=== PATIENT | male | born 1970 | race Caucasian/White ===

== ENCOUNTER 2020-01-04 06:27 | Day surgery (SDC) | payer MEDICARE, SELFPAY ==
[2020-01-04 06:17] VITALS: BMI 29.7
[2020-01-04 06:45] VITALS: BP 155/85; PULSE 70; RESP 18; TEMP 36.8; O2SAT 97
--- NOTE | 2020-01-04 06:52 | ANES.PREANE2 ---
Pre-Anesthetic Assessment Pre-Anesthetic Assessment: Height/Weight: Height 1.85 m Weight 102.058 kg Temp Pulse Resp BP Pulse Ox 98.3 F 70 18 155/85 97 01/04/20 06:45 01/04/20 06:45 01/04/20 06:45 01/04/20 06:45 01/04/20 06:45 Preop Diagnosis: gerd, hematocheziA Proposed Procedure: Operation Date: 01/04/20 07:00 Proposed Procedures p EGD(Not Applicable) - Pantera Smith MD s Colonoscopy(Not Applicable) - Pantera Smith MD Was Beta [place] taken within 24 hours: N/A Last intake: Intake Last Liquid Date 01/03/20 Last Liquid Time 21:30 Last Solid Date 01/02/20 Social: Social History: No alcohol and No tobacco Exam: Pre-Anes Outpt Exam: alert, oriented x 3, clear to auscultation bilaterally and regular rate & rhythm Airway: Submandibular: WNL Cervical ROM: WNL MP: 2 Dentition: Full History/ROS: No significant history except as noted and No significant complaints Pulmonary: Pulmonary: None reported CV/HEM: CV/HEM: HTN : : None reported Hepatic: Hepatic: None reported GI: GI: GERD Metabolic: Metabolic: None reported Musc/skel: Musc/skel: Lower Back Pain and OA/DJD Neuropsych: Neuropsych: None reported Anesthetic Plan: ASA status: 3 Anesthesia: MAC Data Anesthesia Cardiac Studies: No Data to Display
[2020-01-04] MEDS: sodium chloride 0.9% 1,000 ML 30 ML IV (06:55)
--- NOTE | 2020-01-04 07:03 | W.PM.OPSUD ---
Surgery/Procedure H&P Update DATE OF PROCEDURE: January 04, 2020 DATE H&P PERFORMED: 12/18/19 H&P UPDATE INFORMATION: No changes to prior documentation PREOP DIAGNOSIS: gerd, hematocheziA PLANNED PROCEDURE: Operation Date: 01/04/20 07:00 Proposed Procedures p EGD(Not Applicable) - Pantera Smith MD s Colonoscopy(Not Applicable) - Pantera Smith MD
[2020-01-04 07:26] VITALS: BP 147/94; PULSE 64; RESP 16; TEMP 36.6; O2SAT 99
--- NOTE | 2020-01-04 07:31 | ANE.PACU2 ---
Inpatient post-anesthesia follow up: Airway intact: Yes Vital signs: Temperature 97.9 F Pulse Rate 64 Respiratory Rate 16 Blood Pressure 147/94 Pulse Oximetry 99 Oxygen Delivery Me thod Nasal Cannula Oxygen Flow Rate 3 Fraction of Inspir ed Oxygen Hydration adequate: Yes Nausea and vomiting: No Mental status: Baseline
[2020-01-04 07:41] VITALS: BP 146/85; PULSE 58; RESP 18; O2SAT 97
[2020-01-08 06:40] LABS: H. Pylori / CLO Test Negative
== END 2020-01-04 07:44 | disposition home or self-care (01) ==
PROVIDERS: PCP Family Medicine; Visit Provider Surgery
PROC: 0DJ08ZZ Inspection of Upper Intestinal Tract, Via Natural or Artificial Opening Endoscopic (ICD-10-PCS; CPT 43235; principal; 2020-01-04 07:00)
PROC: 0DJD8ZZ Inspection of Lower Intestinal Tract, Via Natural or Artificial Opening Endoscopic (ICD-10-PCS; CPT 45378; 2020-01-04 07:00)
DX: K92.1 Melena (principal); K21.9 Gastro-esophageal reflux disease without esophagitis; K44.9 Diaphragmatic hernia without obstruction or gangrene; K57.30 Diverticulosis of large intestine without perforation or abscess without bleeding; K64.8 Other hemorrhoids; K29.70 Gastritis, unspecified, without bleeding; K29.80 Duodenitis without bleeding; I10 Essential (primary) hypertension; M19.90 Unspecified osteoarthritis, unspecified site; M79.7 Fibromyalgia; Z87.891 Personal history of nicotine dependence; Z79.891 Long term (current) use of opiate analgesic
CPT/HCPCS: 12345; 43239; 45378; 87077; J2001; J2704; J3010; J7030

== ENCOUNTER 2021-04-06 15:23 | Emergency (ER) | payer MEDICARE, SELFPAY ==
[2021-04-06 15:41] VITALS: BP 142/89; PULSE 81; RESP 18; TEMP 37.1; O2SAT 97; BMI 28.3
--- NOTE | 2021-04-06 16:52 | W.ED.GENADLT ---
HPI - General Adult General: Chief complaint: Psychiatric Symptoms Stated complaint: Anxiety, restlessness, not being able to sleep Time Seen by Provider: 04/06/21 15:29 History of Present Illness: HPI narrative: CC: Palpitations HPI: This is a [50] yo patient hx of anxiety, panic attacks presenting to the ED complaining of worsening anxiety episodes for the last 3 weeks. Patient tells me because of recent surgeries, he has been feeling more anxious at home and has had difficulty sleeping. Denies any recent sympathomimetic drug use, hx or family hx of thyroid issues, dysphagia, diaphoresis, radiation of pain to bilateral arms, jaw. Denies F/N/V/D. Patient denies any recent immobility, surgery, unilateral leg swelling, or prior PE. Patient denies any orthopnea. Patient denies any active SI/HI or visual hallucinations Onset: 3 weeks ago Duration: intermittent for the last 3 weeks Location: home Severity: mild/moderate Review of Systems Narrative: Constitutional: No fever, no chills. HEENT: No vision changes, no sore throat. CV: No chest pain, +palpitations. PULM: No cough, no dyspnea. GI: No abdominal pain, no N/V/D. : No dysuria, no frequency, no hematuria. MSKEL: No arthralgias, no edema. SKIN: No new rashes, no lesions. NEURO: No headache, no focal weakness. HEME: No easy bleeding or bruising. PSYCH: No change in mood or affect. Physical Exam Narrative: EXAM NARRATIVE: Head: Atraumatic, normocephalic Eyes: PERRL, EOMI, conjunctiva without injection ENT: Throat without erythema, lesions or exudate, MMM NECK: Supple, trachea midline, no JVD LUNGS: LCTA CV: RRR, S1,S2, no murmurs, rubs, gallops. 2+ peripheral pulses in UEs ABDOMEN: Soft, nontender, nondistended, BS x4, no rigidity, no guarding, no rebound EXTREMITY: Normal ROM, no pitting edema, no calf tenderness to palpation SKIN: No rash or erythema NEURO: Awake and alert. No focal motor deficits. PSYCH: Normal mood and affect. Course Vital Signs: Vital signs: Vital Signs Temperature 98.7 F 04/06/21 15:41 Pulse Rate 80 10/03/21 17:25 Respiratory Rate 16 04/06/21 17:25 Blood Pressure 138/88 04/06/21 17:25 Pulse Oximetry 97 04/06/21 17:25 MDM - General Adult MDM Narrative: Medical decision making narrative: [50]yo patient w/ hx of anxiety and panic attacks presenting to the ED with evaluation of worsening anxiety and panic attacks. On exam, HDS, pulse 2+ radially bilaterally, no signs of fluid overload, AAOx3, neuro exam intact. Presentation in a young patient likely anxiety attack vs atypical chest pain. Given History and Exam today I have no suspicion for ACS, Pneumothorax, Pneumonia, Pulmonary Embolus, Tamponade, Aortic Dissection or other emergent problems as a cause for this presentation. Interventions: ativan 2mg No suspicion for any other acute pathologies. Patient reassures me no SI/HI today. Disposition: Discharge. Strict return precautions discussed with the patient with full understanding. Advised patient to follow up promptly with a primary care provider in 24-48 hrs if the patient has persistent symptoms. Given return instructions for any crushing/tearing chest pain, focal weakness, syncope or any new or concerning issues. Instructed to follow up with PCP for further evaluation and multi-modal management of anxiety. Patient agrees with plan today. Discharge Plan Discharge Patient Disposition: Home Clinical Impression: Anxiety, Panic attack Condition: Stable Prescriptions: New Ativan 1 mg tablet 1 mg PO BID PRN (Reason: panic attack(s)) 3 Days Qty: 6 RF: 0 melatonin 5 mg tablet 5 mg PO DAILY PRN (Reason: sleep) 10 Days RF: 0 No Action cetirizine 10 mg Tablet 10 mg PO DAILY RF: 0 meloxicam 15 mg Tablet 15 mg PO DAILY RF: 0 hydrocodone-acetaminophen 10-325 mg Tablet 1 tab PO Q8H PRN (Reason: Pain) RF: 0 baclofen 20 mg Tablet 20 mg PO TID RF: 0 pantoprazole 40 mg Tablet,Delayed Release (Dr/Ec) 40 mg PO DAILY RF: 0 lisinopril 10 mg Tablet 10 mg PO BID RF: 0 rosuvastatin 40 mg Tablet 40 mg PO DAILY RF: 0 Repatha SureClick 140 mg/mL Pen Injector 140 mg SUBCUT DIRECTED RF: 0 cannabidiol See Rx Instructions .ROUTE .COMPLEX RF: 0 Discharge Orders: Discharge ED (Routine); Ordered 04/06/21 Ordered By: Bharath Azevedo Referrals: Stefano Leahy MD [Primary Care Provider] - Discharge Diet: Advance as tolerated Discharge Activity: Resume usual activity Patient Instructions: Anxiety (ED) Activity Restrictions/Additional Instructions: Please come back to the emergency room if you have any anxiety, hallucinations, or you have any depression or have thoughts about hurting yourself or other people. Coding Level of Care Code ED Print Project Manager for Andreia Cordova
[2021-04-06 17:25] VITALS: BP 138/88; PULSE 80; RESP 16; O2SAT 97
== END 2021-04-06 17:27 | disposition home or self-care (01) ==
PROVIDERS: Emergency Provider Emergency Medicine; PCP Family Medicine
DX: F41.9 Anxiety disorder, unspecified (principal); F41.0 Panic disorder [episodic paroxysmal anxiety]
CPT/HCPCS: 99281

== ENCOUNTER 2023-09-04 20:41 | Inpatient (IN) | payer MEDICARE, SELFPAY ==
[2023-09-04 20:42] VITALS: BP 164/101; PULSE 72; RESP 16; TEMP 36.4; O2SAT 95; BMI 31.4
--- NOTE | 2023-09-04 20:48 | ECG_ITS ---
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 Measurements Intervals Geraldine Rate: 81 P: 36 ME: 144 QRS: 34 QRSD: 90 T: 53 QT: 309 QTc: 359 Interpretive Statements SINUS RHYTHM NONSPECIFIC T-WAVE ABNORMALITY No previous ECG available for comparison Electronically Signed On 09-06-2023 9:30:11 PAY STATION ATTENDANT by Franklyn Sanders M.D. [email or web address]
--- NOTE | 2023-09-04 21:18 | XRR_ITS ---
PROCEDURE INFORMATION: Exam: XR Chest Exam date and time: 09/04/2023 9:31 PM Age: 52 years old Clinical indication: Patient HX: AMS; Overdose TECHNIQUE: Imaging protocol: Radiologic exam of the chest. Views: 1 view. COMPARISON: CR XR shoulder LT min 2V* [id number] 05/19/2018 11:03 AM FINDINGS: Lungs: Unremarkable. No consolidation. Pleural spaces: Unremarkable. No pleural effusion. No pneumothorax. Heart/Mediastinum: Unremarkable. No cardiomegaly. Bones/joints: Unremarkable. XR/XR chest 1V portable [id number] IMPRESSION: No acute findings.
[2023-09-04 21:25] LABS: Basophils # 0.1 10^3/uL (0.0-0.1); Basophils % 0.4 %; Eosinophils # 0.2 10^3/uL (0.0-0.8); Hematocrit 45.9 % (37-53); Lymphocytes # 4.1 10^3/uL (0.8-4.8); Lymphocytes % 24.7 %; Mean Corpuscular HGB Conc 33.6 g/dL (30-55); Mean Corpuscular Hemoglobin 29.6 pg (27-33); Mean Corpuscular Volume 88.1 fl (82-101); Mean Platelet Volume 10.4 fL (7.4-10.4); Monocytes # 1.7 10^3/uL (0.2-0.9); Monocytes % 10.1 %; Neutrophils # 10.47 10^3/uL (1.8-7.7); Neutrophils % 63.3 %; Nucleated Red Blood Cells % 0 %; Platelet Count 272 10^3/cmm (157-399); Red Blood Count 5.21 10^6/uL (3.85-5.65); Red Cell Distribution Width 12.5 % (12.1-15.1); White Blood Count 16.51 10^3/uL (3.29-11.43)
[2023-09-04] MEDS: naloxone 0.4 mg/ml SDV 0.200000000000000011 MG IVP (21:28)
[2023-09-04] MEDS: sodium chloride 0.9% 1,000 ML 999 ML IV (21:29)
[2023-09-04 21:33] LABS: ABG PCO2 46.7 mmHg (35-45); ABG PH Result 7.37 (7.35-7.45); Arterial Blood Gas Hematocrit 46.9 % (42-52); Base Excess ABG 1.1 mmol/L (-2.0-2.0); Blood Gas Sample Site Brachial, right; Blood Gas Sample Type Arterial; Oxygen Device ROOM AIR; PO2 ABG 74.7 mmHg (80.0-100.0)
[2023-09-04 21:38] VITALS: BP 156/95; PULSE 72; RESP 16; O2SAT 94
[2023-09-04 21:46] LABS: Alanine Aminotransferase 28 U/L (0-41); Albumin Level 4.5 g/dL (3.5-5.2); Alkaline Phosphatase 73 U/L (40-130); Anion Gap 18.8 (5-19); Aspartate Amino Transferase 17 U/L (0-40); Blood Urea Nitrogen 17 mg/dL (6-20); Calcium 8.9 mg/dL (8.5-10.5); Carbon Dioxide 24 mmol/L (22-29); Chloride 96 mmol/L (98-107); Globulin 2.8 g/dL (1.3-4.6); Glomerular Filtration Rate 78.5 mL/min (90-130); Glucose 130 mg/dL (65-115); Osmolality Calculated 283 mOsm/kg (285-295); Potassium 3.8 mmol/L (3.5-5.1); Sodium 135 mmol/L (136-145); Thyroid Stimulating Hormone 0.79 uIU/mL (0.27-4.20); Total Bilirubin 0.4 mg/dL (0.15-1.2); Total Protein 7.3 g/dL (6.6-8.7)
[2023-09-04 21:47] LABS: Acetaminophen < 5.0 ug/mL (10-30); Alcohol Level < 10 mg/dL (0-10); Salicylate < 0.3 mg/dL (3-10)
[2023-09-04 22:27] VITALS: BP 142/89; PULSE 77; RESP 16; O2SAT 90
[2023-09-04 22:32] LABS: Add Urine Microscopic? NO; Charge for UA Resulting for Rev
[2023-09-04 22:34] LABS: Bilirubin Urine Neg (Negative); Blood Urine Neg (Negative); Glucose Urine UA 2+ (Normal); Ketones Urine Negative (Negative); Leukocyte Esterase Urine Negative (Negative); Nitrate Urine Negative (Negative); Protein Urine Neg (Negative); Urine Appearance Clear (CLEAR); Urine Color Yellow (Yellow); Urobilinogen Urine Norm (Negative); pH Urine 5 (5-7)
[2023-09-04 22:42] LABS: Amphetamines Screen Urine Negative (Negative); Barbiturates Screen Urine Negative (Negative); Benzodiazepines Screen Urine Negative (Negative); Cocaine Screen Urine Negative (Negative); Opiate Screen Urine Positive (Negative); PCP Screen Urine Negative (Negative); THC Screen Urine Negative (Negative)
[2023-09-04 23:25] VITALS: BP 155/95; PULSE 70; RESP 16; O2SAT 92
--- NOTE | 2023-09-04 23:26 | P.HP_ITS ---
Providers/Chief Complaint 2 Primary Care Provider: Brian Gupta MD Chief Complaint: od History of Present Illness 53-year-old gentleman with history of anxiety, panic attacks, remotely reported history of depression, chronic back pain, multiple back surgeries, GERD, IBS, migraine headache, BPH, other medical problems was recently started on duloxetine, it was reportedly not effective so dose was increased from 20 mg to 30 mg, she was brought in for evaluation to ER after he was found somnolent and sedated at home by family with 7 tablets missing from the new prescription. In ER he is lethargic, not providing history, would not wake up for me. Pinpoint perforation was noted, he also has [place] as one of his home prescriptions, Narcan was trialed with partial response. Motivation of taking that pain tablets at once is unclear, but suicidal attempt is not excluded. 96-hour hold is being arranged anemia, request is made for admission after overdose prior to psychiatric assessment. Review of Systems 2 General: Reports: ROS unobtainable due to mental status Medications/Allergies Home Medications Medication Instructions Recorded Confirmed Last Taken Type baclofen 20 mg tablet 20 mg PO TID 01/02/20 01/02/20 01/03/20 History cannabidiol See Rx Instructions .Route .COMPLEX 01/02/20 01/02/20 01/03/20 History cetirizine 10 mg tablet 10 mg PO DAILY 01/02/20 01/02/20 01/03/20 History evolocumab 140 mg/mL subcutaneous 140 mg SUBCUT DIRECTED 01/02/20 01/02/20 01/03/20 History pen injector (Livier Spear) hydrocodone 10 mg-acetaminophen 1 tab PO Q8H PRN Pain 01/02/20 01/02/20 01/03/20 History 325 mg tablet lisinopril 10 mg tablet 10 mg PO BID 01/02/20 01/02/20 01/03/20 History meloxicam 15 mg tablet 15 mg PO DAILY 01/02/20 01/02/20 01/03/20 History pantoprazole 40 mg tablet,delayed 40 mg PO DAILY 01/02/20 01/02/20 01/03/20 History release rosuvastatin 40 mg tablet 40 mg PO DAILY 01/02/20 01/02/20 01/03/20 History Allergies Allergy/AdvReac Type Severity Reaction Status Date / Time No Known Allergies Allergy Verified 01/02/20 11:47 PFSH Acute 2 PFSH: Medical History BPH (benign prostatic hyperplasia) Panic attack Anxiety Depression Arthritis Fibromyalgia GERD (gastroesophageal reflux disease) Hemorrhoid Hypertension Hypercholesteremia Irritable bowel syndrome Migraine headache Prostate enlargement Chronic low back pain PUD (peptic ulcer disease) Gastritis Normal colonoscopy Surgical History History of back surgery H/O knee surgery Hx of detached retina repair Hx of esophagogastroduodenoscopy Family History Other CAD (coronary artery disease) Cancer Depression Hypertension Social History Smoking and tobacco/nicotine status: former use of tobacco/nicotine Marital status: Vitals/I&O/Wt Last Vital Signs Temp 97.6 F 09/04/23 20:42 Pulse 70 09/04/23 23:25 Resp 16 09/04/23 23:25 BP 155/95 09/04/23 23:25 Pulse Ox 92 09/04/23 23:25 O2 Del Method Room Air 09/04/23 23:25 Weight last 48 hrs Weight 102.058 kg Physical Exam 2 Narrative: Family at bedside. Const: COMMON NORMALS: negative for alert GENERAL APPEARANCE: not cooperative ORIENTATION/CONSCIOUSNESS: Yes patient obtunded and Yes lethargic; not awake HENMT: COMMON NORMALS: oropharynx normal Neck/C-Spine: COMMON NORMALS: no JVD Resp: COMMON NORMALS: normal respiratory effort and clear to auscultation bilaterally AUSCULTATION: clear to auscultation bilaterally OTHER: Snoring, family deny history of LOW Cardio: COMMON NORMALS: no JVD, regular rhythm, S1 normal heart sound present, S2 normal heart sound present and No murmurs present (Cardio) RHYTHM: regular rhythm HEART SOUNDS: S1 normal heart sound present and S2 normal heart sound present GI: COMMON NORMALS: Normal to inspection, nondistended, normoactive bowel sounds present, Soft to palpation and non-tender PALPATION: Yes Soft to palpation Extremity: COMMON NORMALS: no joint enlargement and no pedal edema Neuro: COMMON NORMALS: moves all extremities SENSORIUM/ORIENTATION: No alert Skin: COMMON NORMALS: no rashes or lesions noted GENERAL SKIN EXAM: no rashes or lesions noted Data 09/04/23 20:30 09/04/23 20:30 A&P Assessment and plan (1) AMS (altered mental status): Acute encephalopathy, suspected toxic secondary to medication overdose. Found lethargic, sedated at home, 7 tablets of the increased dose of duloxetine missing from the bottle, in ER with some pinpoint pupils, only partial response to Narcan, did apparently get up at 1 point to use the restroom, but on my exam he is obtunded, not waking up. He is protecting his airway. Noted some hypercapnia but so far compensated. So far maintaining blood pressure, heart rate. Reviewed vitals, CBC, ABG, CMP, TSH, UA, UDS, EKG on my interpretation with NSR, no signs of ischemia or arrhythmia, chest x-ray on my interpretation unremarkable, discussed with ER physician. Reported tablets of increased dose of duloxetine 30 mg missing from the bottle, pinpoint pupils on presentation, question of overdose, and on whether could be multisubstance overdose with several medications, intentional so unclear, does have history of anxiety, panic attacks, remote history of depression. Possible suicide attempt not excluded 96-hour hold his prepared in ER. Will need psychiatry consultation once able to communicate. Per family he did not have any other complaints, no recent fevers, headaches, nausea vomiting, or any other systemic symptoms. Admission to intensive care unit for additional assessment management following overdose. Monitor respiratory status, monitor telemetry. TSH unremarkable, UA, chest x-ray Microline, has a leukocytosis but otherwise no suggestion of infection. Monitor oxygenation, could have had some aspiration, may be at risk of pneumonitis, pneumonia. Reassess CBC. (2) Medication overdose: As above (3) Leukocytosis: As above Plan Anxiety Panic attacks HTN: Monitor blood pressure. Resume lisinopril when he is more awake HLD: Resume statin when he is more awake BPH GERD: IV PPI for now Requesting to his home medications, please review and reconcile once available. Attestations 2 Medical Necessity Statement*: Admission of over 2 midnights anticipated for assessment of management of acute encephalopathy, medication overdose, possible suicidal attempt. Diagnoses AMS (altered mental status) R41.82 Medication overdose T50.901A Leukocytosis D72.829
[2023-09-04 23:41] VITALS: BP 136/99; PULSE 67; RESP 12; O2SAT 91
--- NOTE | 2023-09-04 23:58 | PC.NURSE ---
Pt, , and daughter notified of 96hr hold status. 96 hour paperwork discussed with security at side. All questions answered and copy of 96hr paperwork left with pt and family.
[2023-09-05] VITALS (62 sets, daily range): BP systolic 131–182; BP diastolic 76–119; PULSE 61–103; RESP 12–220; TEMP 36.4–37.1; O2SAT 87–95; BMI 29.9
--- NOTE | 2023-09-05 00:05 | PC.NURSE ---
Suicide Assessment When asked to relay the events leading up to his admission, patient stated that he was stacy bummed out and that he took too much of his medication. Further inquiries led to patient stating that he thought taking more would just make him feel better. Additionally, when asked if he was attempting to harm or kill himself, he stated no. While completing the suicide assessment, patient answered that he has never been suicidal in his lifetime. While in room later, concurred that patient has never been suicidal previously and states that earlier in the day following taking his medication that he kept asking the question, why don't I feel better yet?
--- NOTE | 2023-09-05 01:05 | PC.NURSE ---
Belongings Patient's pants, shirt, belt, shoes, and wallet sent home with patient's and daughter.
[2023-09-05 01:29] LABS: Glucose Point of Care 141 mg/dL (70-110)
--- NOTE | 2023-09-05 01:31 | PC.NURSE ---
Poison Control Poison control called and received update on patient. No new recommendations at this time.
[2023-09-05 04:22] LABS: Basophils % 0.4 %; Eosinophils # 0.1 10^3/uL (0.0-0.8); Eosinophils % 0.7 %; Hematocrit 43.2 % (37-53); Lymphocytes # 1.8 10^3/uL (0.8-4.8); Mean Corpuscular HGB Conc 33.6 g/dL (30-55); Mean Corpuscular Hemoglobin 29.5 pg (27-33); Mean Corpuscular Volume 87.8 fl (82-101); Mean Platelet Volume 10.4 fL (7.4-10.4); Monocytes # 0.7 10^3/uL (0.2-0.9); Monocytes % 6.2 %; Neutrophils % 75.3 %; Nucleated Red Blood Cells % 0 %; Platelet Count 258 10^3/cmm (157-399); Red Blood Count 4.92 10^6/uL (3.85-5.65); Red Cell Distribution Width 12.5 % (12.1-15.1); White Blood Count 10.73 10^3/uL (3.29-11.43)
[2023-09-05] MEDS: ondansetron 2 mg/ML SDV 2 mL 4 MG IVP (04:37)
[2023-09-05 04:43] LABS: Alanine Aminotransferase 24 U/L (0-41); Albumin Level 4.2 g/dL (3.5-5.2); Alkaline Phosphatase 70 U/L (40-130); Anion Gap 13.5 (5-19); Aspartate Amino Transferase 14 U/L (0-40); Blood Urea Nitrogen 15 mg/dL (6-20); Calcium 8.6 mg/dL (8.5-10.5); Carbon Dioxide 27 mmol/L (22-29); Chloride 98 mmol/L (98-107); Creatinine Clr Calc Pharmacy 136.1861; Globulin 2.6 g/dL (1.3-4.6); Glomerular Filtration Rate 101.5 mL/min (90-130); Glucose 132 mg/dL (65-115); Osmolality Calculated 281 mOsm/kg (285-295); Potassium 4.5 mmol/L (3.5-5.1); Sodium 134 mmol/L (136-145); Total Bilirubin 0.5 mg/dL (0.15-1.2); Total Protein 6.8 g/dL (6.6-8.7)
[2023-09-05] MEDS: alum-mag-hydroxide-sime 30 mL UDC PO (05:04)
--- NOTE | 2023-09-05 05:24 | PC.NURSE ---
Heartburn Patient complaining of heartburn. Dr. Rios notified; order placed by physician for 30 ml maalox PO once. See MAR for details.
--- NOTE | 2023-09-05 05:57 | W.ED.OVERDOS ---
HPI - Overdose General: Chief Complaint: Overdose Stated Complaint: od Time Seen by Provider: 09/04/23 20:55 History of Present Illness: 52-year-old male presents with mental status change. He has been arousable, but very drowsy and lethargic. His notes that he has been more depressed lately than usual. He was started on duloxetine, and was post to increase his dose. He did so appropriately, but she found 9 duloxetine missing today after finding her in the state he is in. He is also on some pain medication, hydrocodone. She does not know if he took too many of these. He is arousable, answer simple questions, but falls right back asleep. Review of Systems General: Reports: ROS unobtainable due to mental status Const: Denies: fever(s) ENMT: Denies: throat pain Card: Denies: chest pain [facility] ED PFSH: Medical History BPH (benign prostatic hyperplasia) Panic attack Anxiety Depression Arthritis Fibromyalgia GERD (gastroesophageal reflux disease) Hemorrhoid Hypertension Hypercholesteremia Irritable bowel syndrome Migraine headache Prostate enlargement Chronic low back pain PUD (peptic ulcer disease) Gastritis Normal colonoscopy Surgical History History of back surgery H/O knee surgery Hx of detached retina repair Hx of esophagogastroduodenoscopy Family History Other CAD (coronary artery disease) Cancer Depression Hypertension Social History Smoking and tobacco/nicotine status: former use of tobacco/nicotine Marital status: Physical Exam Const: GENERAL APPEARANCE: cooperative and lethargic; not frail appearing ORIENTATION/CONSCIOUSNESS: Yes lethargic HENMT: COMMON NORMALS: normocephalic, atraumatic and Normal external nose present HEAD & SCALP: normocephalic and atraumatic FACE & SINUS: normal facial exam and face symmetric NOSE: Normal external nose present Eye: COMMON NORMALS: Equal, round and reactive pupils present and EOMs intact bilaterally PUPIL: Yes Equal, round and reactive pupils present Neck/C-Spine: GENERAL: Yes trachea midline Chest: CHEST: Yes Symmetrical chest wall rise Resp: COMMON NORMALS: normal respiratory effort, No retractions, No use of accessory muscles and clear to auscultation bilaterally AUSCULTATION: clear to auscultation bilaterally Cardio: COMMON NORMALS: regular rate and regular rhythm RATE: regular rate RHYTHM: regular rhythm GI: COMMON NORMALS: Normal to inspection, nondistended, normoactive bowel sounds present Extremity: COMMON NORMALS: no pedal edema Neuro: ANDRES COMA SCALE: document GCS findings Andres coma scale eye opening: To sound Andres coma scale verbal response: Confused [place] coma scale motor response: Obey commands [place] coma scale total score: 13 SENSORIUM/ORIENTATION: Yes lethargic SENSORY EXAM: Yes extremities (intact) Psych: COMMON NORMALS: speech normal SPEECH: Yes normal speech Skin: COMMON NORMALS: no rashes or lesions noted GENERAL SKIN EXAM: no rashes or lesions noted Course Vital Signs: Vital signs: Vital Signs Temperature 98.8 F 09/05/23 08:00 Pulse Rate 100 09/05/23 18:30 Respiratory Rate 22 H 09/05/23 18:30 Blood Pressure 159/98 09/05/23 18:30 Pulse Oximetry 92 09/05/23 18:30 Oxygen Delivery Me thod Room Air 09/05/23 06:00 MDM - Overdose Medical Decision Making Vitals been good. His oxygenation has been 92 to 95% on room air. CBC is normal. BMP is normal. pH is 7.37 with pCO2 of 47 and a pO2 of 75. Tylenol and salicylate levels are nondetectable. He is opioid positive. Mentation did not improve much after small dose of Narcan was given. He will have to go to the ICU. Because of the nebulous nature surrounding his overdose, whether intentional or not, he will be placed under 96-hour hold. Affidavit has been written. Psychiatry will be consulted. Hospitalist is seeing the patient. Lab Data 09/05/23 03:27 09/05/23 03:27 Radiology Impressions Chest X-Ray 09/04/23 21:18 IMPRESSION: No acute findings. Laboratory Results WBC 16.51 10^3/uL (3.29-11.43) H 09/04/23 20:30 RBC 5.21 10^6/uL (3.85-5.65) 09/04/23 20:30 Hgb 15.40 g/dL (11.27-16.99) 09/04/23 20:30 Hct 45.9 % (37-53) 09/04/23 20:30 MCV 88.1 fl (82-101) 09/04/23 20:30 MCH 29.6 pg (27-33) 09/04/23 20:30 MCHC 33.6 g/dL (30-55) 09/04/23 20:30 RDW 12.5 % (12.1-15.1) 09/04/23 20:30 Plt Count 272 10^3/cmm (157-399) 09/04/23 20:30 MPV 10.4 fL (7.4-10.4) 09/04/23 20:30 Neut % (Auto) 63.3 % 09/04/23 20:30 Lymph % (Auto) 24.7 % 09/04/23 20:30 [place] % (Auto) 10.1 % 09/04/23 20:30 Eos % (Auto) 1.0 % 09/04/23 20:30 Baso % (Auto) 0.4 % 09/04/23 20:30 Neut # (Auto) 10.47 10^3/uL (1.8-7.7) H 09/04/23 20:30 Lymph # (Auto) 4.1 10^3/uL (0.8-4.8) 09/04/23 20:30 [place] # (Auto) 1.7 10^3/uL (0.2-0.9) H 09/04/23 20:30 Eos # (Auto) 0.2 10^3/uL (0.0-0.8) 09/04/23 20:30 Baso # (Auto) 0.1 10^3/uL (0.0-0.1) 09/04/23 20:30 Nucleated RBC % (auto) 0 % 09/04/23 20: Nucleated RBCs # 0.0 /100WBC 09/04/23 20:30 Specimen Type Arterial 09/04/23 21:22 Sample Site Brachial, right 09/04/23 21:22 ABG pH 7.37 (7.35-7.45) 09/04/23 21:22 ABG pCO2 46.7 mmHg (35-45) H 09/04/23 21:22 ABG pO2 74.7 mmHg (80.0-100.0) L 09/04/23 21:22 ABG HCO3 27.0 mmol/L (22-26) H 09/04/23 21:22 ABG Base Excess 1.1 mmol/L (-2.0-2.0) 09/04/23 21:22 Piyush Test N/a 09/04/23 21:22 Hematocrit 46.9 % (42-52) 09/04/23 21:22 O2 Delivery Device Room air 09/04/23 21:22 Outsoles Channel Opener ID [email or web address] 09/04/23 21:22 Sodium 135 mmol/L (136-145) L 09/04/23 20:30 Potassium 3.8 mmol/L (3.5-5.1) 09/04/23 20:30 Chloride 96 mmol/L (98-107) L 09/04/23 20:30 Carbon Dioxide 24 mmol/L (22-29) 09/04/23 20:30 Anion Gap 18.8 (5-19) 09/04/23 20:30 BUN 17 mg/dL (6-20) 09/04/23 20:30 Creatinine 1.0 mg/dL (0.7-1.2) 09/04/23 20:30 GFR Calculation 78.5 mL/min (90-130) L 09/04/23 20:30 Glucose 130 mg/dL (65-115) H 09/04/23 20:30 Calculated Osmolality 283 mOsm/kg (285-295) L 09/04/23 20:30 Calcium 8.9 mg/dL (8.5-10.5) 09/04/23 20:30 Total Bilirubin 0.4 mg/dL (0.15-1.2) 09/04/23 20:30 AST 17 U/L (0-40) 09/04/23 20:30 ALT 28 U/L (0-41) 09/04/23 20:30 Alkaline Phosphatase 73 U/L (40-130) 09/04/23 20:30 Total Protein 7.3 g/dL (6.6-8.7) 09/04/23 20:30 Albumin 4.5 g/dL (3.5-5.2) 09/04/23 20:30 Globulin 2.8 g/dL (1.3-4.6) 09/04/23 20:30 TSH 0.79 uIU/mL (0.27-4.20) 09/04/23 20:30 Urine Color Yellow (Yellow) 09/04/23 22:25 Urine Appearance Clear (CLEAR) 09/04/23 22:25 Urine pH 5 (5-7) 09/04/23 22:25 Ur Specific [place] 1.020 (1.005-1.030) 09/04/23 22:25 Urine Protein Neg (Negative) 09/04/23 22:25 Urine Glucose (UA) 2+ (Normal) H 09/04/23 22:25 Urine Ketones Negative (Negative) 09/04/23 22:25 Urine Blood Neg (Negative) 09/04/23 22:25 Urine Nitrate Negative (Negative) 09/04/23 22:25 Urine Bilirubin Neg (Negative) 09/04/23 22:25 Urine Urobilinogen Norm mg/dL (Negative) 09/04/23 22:25 Ur Leukocyte Esterase Negative (Negative) 09/04/23 22:25 Salicylates < 0.3 mg/dL (3-10) L 09/04/23 20:30 Urine Opiates Screen Positive ng/mL (Negative) H 09/04/23 22:25 Acetaminophen < 5.0 ug/mL (10-30) L 09/04/23 20:30 Ur Barbiturates Screen Negative ng/mL (Negative) 09/04/23 22:25 Ur Phencyclidine Scrn Negative ng/mL (Negative) 09/04/23 22:25 Ur Amphetamines Screen Negative ng/mL (Negative) 09/04/23 22:25 U Benzodiazepines Scrn Negative ng/mL (Negative) 09/04/23 22:25 Urine Cocaine Screen Negative ng/mL (Negative) 09/04/23 22:25 U Marijuana (THC) Screen Negative ng/mL (Negative) 09/04/23 22:25 Ethyl Alcohol < 10 mg/dL (0-10) 09/04/23 20:30 All radiology interpretation(s) finalized by discharge Discharge Plan Discharge Patient Disposition: Admitted As Inpatient Admit Provider: Salas Rios Clinical Impression: AMS (altered mental status), Medication overdose, Leukocytosis Condition: Serious Coding Level of Care Code ED Supervisor Brake Repair for Andreia Cordova
[2023-09-05] MEDS: acetaminophen 325 mg Tablet 650 MG PO (06:08)
[2023-09-05] MEDS: tamsulosin 0.4 mg Capsule 0.400000000000000022 MG PO (06:50)
--- NOTE | 2023-09-05 06:53 | PC.NURSE ---
Urinary Retention Throughout the night, patient had minimal urine output at 125 ml despite multiple attempts. Patient stated I know I need to pee, I'm just having trouble. Bladder scan performed revealing [address] Rios notified; orders placed by physician for a levine catheter as well as 0.4 mg tamsulosin PO daily. See MAR for details.
[2023-09-05] MEDS: pantoprazole 40 mg SDV IVP (08:16)
--- NOTE | 2023-09-05 09:34 | PC.PHAR ---
pt states to ask his what medications he takes states they are in his cabinet-called pts merari [phone]-pts went through the pts medications states the pt has been taking an old rx of norco 10-325mg tid prn states rx bottle dated 12/19/2019 and flexeril 10mg tid prn rx bottle dated 04/20/23 along with his new rxs that he just got of cymbalta and celebrex-pts states the pt is not taking baclofen 20mg tid prn rx bottle dated 04/11/2021,celexa rx bottle dated 05/20/2021,crestor 40mg daily rx bottle dated 11/27/22-on previously entered med list was lisinopril 10mg bid,mobic 15mg daily,protonix 40mg daily zyrtec 10mg daily marijuana and repatha sureclick 150mg [id number] pts states pt is not taking any of those medications-
--- NOTE | 2023-09-05 13:32 | P.PN_ITS ---
Subjective 2 Subjective: Patient was seen this morning, he is alert to person, to place, not to time, he is a bit withdrawn, when I asked him which medications he takes, he tells me that he took too many of the duloxetine, he admits that this was a suicide attempt, reports suicidal ideation nothing active, he does report he took meloxicam, Flexeril, and hydrocodone, all in attempt to kill himself, currently denies any active suicidal ideation, no active homicidal ideation, denies any chest pain or palpitations, denies alcoholism, denies any other drug use, Vitals/I&O/Wt Last Vital Signs Temp 98.8 F 09/05/23 08:00 Pulse 84 09/05/23 12:00 Resp 16 09/05/23 12:00 BP 131/81 09/05/23 11:00 Pulse Ox 91 09/05/23 12:00 O2 Del Method Room Air 09/05/23 06:00 09/04/23 09/05/23 09/05/23 22:59 06:59 14:59 Intake Total 180 / 180 Output Total 125 / 125 700 / 700 Balance 55 / 55 -700 / -700 Weight last 48 hrs Weight 103 kg Weight 103 kg Weight 102.058 kg Physical Exam 2 Const: COMMON NORMALS: no acute distress ORIENTATION/CONSCIOUSNESS: Yes awake, Yes oriented to person and Yes oriented to place; not oriented to time Resp: COMMON NORMALS: normal respiratory effort, No retractions, No use of accessory muscles and clear to auscultation bilaterally AUSCULTATION: clear to auscultation bilaterally Cardio: COMMON NORMALS: regular rate, regular rhythm, S1 normal heart sound present and S2 normal heart sound present RATE: regular rate RHYTHM: r egular rhythm HEART SOUNDS: S1 normal heart sound present and S2 normal heart sound present GI: COMMON NORMALS: Normal to inspection, nondistended, normoactive bowel sounds present and non-tender Extremity: COMMON NORMALS: no pedal edema Neuro: SENSORIUM/ORIENTATION: Yes oriented to person, Yes oriented to place and No oriented to time Data 09/05/23 03:27 09/05/23 03:27 A&P Assessment and plan (1) AMS (altered mental status): (2) Medication overdose: As above (3) Leukocytosis: As above (4) Suicide attempt: Plan Acute encephalopathy, likely secondary to intentional drug overdose, combination of meloxicam, hydrocodone, duloxetine, cyclobenzaprine -Continue to monitor mentation closely -Serial EKGs, serial troponins, telemetry monitoring -Monitor respiratory status closely Suicide attempt -Psychiatry consulted -96-hour hold -Suicide precautions Anxiety Panic attacks HTN: Monitor blood pressure. Resume lisinopril when he is more awake HLD: Resume statin when he is more awake BPH GERD: IV PPI for now Requesting to his home medications, please review and reconcile once available. Attestations 2 Medical Necessity Statement*: Patient requires hospitalization for intentional drug overdose suicide attempt, encephalopathy, inpatient, greater than 2 midnights Diagnoses AMS (altered mental status) R41.82 Medication overdose T50.901A Leukocytosis D72.829 Suicide attempt T14.91XA
[2023-09-05] MEDS: sodium chloride 0.9% 1,000 ML 75 ML IV (13:54)
[2023-09-05 13:56] LABS: Troponin(5th) Baseline 9 ng/L (0-15)
--- NOTE | 2023-09-05 14:06 | ECG_ITS ---
[facility] Test Date: 2023-09-05 Pat Name: Whit Garcia Department: Room: ICU03 Gender: Male Teletypewriter Installer: : 1970 Requested By: Jese Narvaez Order Number: [id number] Rajendra MD: Franklyn Sanders M.D. Measurements Intervals [place] Rate: 78 P: 66 LA: 152 QRS: 57 QRSD: 89 T: 60 QT: 411 QTc: 470 Interpretive Statements SINUS RHYTHM Compared to ECG 09/04/2023 21:21:46 T-wave abnormality no longer present Electronically Signed On 09-06-2023 8:48:19 MACHINE FORMER by Franklyn Sanders M.D. [id number]
--- NOTE | 2023-09-05 14:09 | ECG_ITS ---
[facility] Test Date: 2023-09-05 Pat Name: Whit Garcia Department: Room: ICU03 Gender: Male Director Of Market Intelligence: : 1970 Requested By: Jese Narvaez Order Number: [id number] Drew MD: Franklyn Sanders M.D. Measurements Intervals [place] Rate: 77 P: 68 MO: 144 QRS: 65 QRSD: 94 T: 76 QT: 416 QTc: 473 Interpretive Statements SINUS RHYTHM Compared to ECG 09/05/2023 14:06:24 No significant changes Electronically Signed On 09-06-2023 9:35:06 ACTUARIAL TECHNICIAN by Franklyn Sanders M.D. [id number]
[2023-09-05 15:05] LABS: Troponin 5 2HR 9.42 ng/L (0-15); Troponin 5 2HR Delta 0.42 ABS# (0-10)
[2023-09-05 15:16] LABS: Estmated Average Glucose 117; Hemoglobin A1C 5.7 % (4.0-6.0)
--- NOTE | 2023-09-05 18:10 | ECG_ITS ---
[facility] Test Date: 2023-09-05 Pat Name: Whit Garcia Department: Room: ICU03 Gender: Male Electrogalvanizing Machine Operator: : 1970 Requested By: Jese Narvaez Order Number: [id number] Rajendra MD: Franklyn Sanders M.D. Measurements Intervals [place] Rate: 90 P: 68 MS: 167 QRS: 66 QRSD: 88 T: 77 QT: 383 QTc: 470 Interpretive Statements SINUS RHYTHM Compared to ECG 09/05/2023 15:23:58 No significant changes Electronically Signed On 09-06-2023 9:33:36 DEPUTY CITY CLERK by Franklyn Sanders M.D. [id number]
--- NOTE | 2023-09-05 18:50 | PC.NURSE ---
shift summary: uneventful shift, very cooperative. foly placed per order for urinary retention
--- NOTE | 2023-09-05 19:15 | P.NPUCON_ITS ---
Providers/Reason for Consult 2 Consulting Physican/Specialty*: Sushil Crawley MD/Psychiatry Reason for Consult*: overdose/suicidal ideation Attending Physician: Jese Narvaez MD Primary Care Provider: Brian Gupta MD Psych Consult HPI History of Present Illness Whit Garcia is a 52 year old male who was brought into for an evaluation to the emergency department after he was found somnolent and sedated at home by his . The patient had admitted to having overdosed on several medications and was admitted to the ICU for further evaluation and stabilization. The patient was evaluated in the ICU. He had endorsed that he had planned on killing himself by overdosing and had allegedly written a note. The patient reports that he has been depressed for many years dating back to the time when he initially had an accident resulting in his current level of disability in his back. He reports that over the past few weeks he has continued to struggle with severe depression with frequent suicidal thoughts, frequent awakenings at night, increased problems with concentration, frequent worry, increased feelings of hopelessness, increased feelings of guilt, increased tearfulness and crying episodes along with depressed mood. The patient had endorsed having chronic problems with managing his anxiety. He describes having problems with excessive worry. He also reports having symptoms supportive of social phobia as a diagnosis with difficulties with being watched and feeling as if he was the center of attention in social situations. He reports the recent emergence of uncued panic attacks with associated chest pain, shortness of breath, difficulties with breathing, and abdominal discomfort as well. The patient has reported that he has been struggling to manage chronic pain and states that he has been less active and less interested in previously enjoyable activities. He states that he rarely uses opiates for managing pain but states that the pain has become unbearable. The patient had reported having previous suicidal thoughts but reports no previous history of suicide attempts. He denies any symptoms suggestive of minda. He endorsed no history of psychosis. He does report that he has been drinking alcohol more frequently but reports no history of increased tolerance nor does he endorse a history of alcohol-related withdrawal symptoms. The patient reports increased social isolation. Inpatient psychiatric history: None Outpatient psychiatric history: He does not report any specific history of outpatient psychotherapy. He reports having previously been treated for depression and anxiety by his primary care physician but was unable to provide details regarding his previous medication trials other than reporting that he had had significant side effects from several of them in the past. He had reported that he had only recently been started on the duloxetine less than 2 weeks ago. Drug and alcohol history: He had reported use of marijuana chronically to manage chronic pain. He had reported no history of stimulant use or any history of opiate abuse. He had reported some routine use of alcohol but denied any history of substance abuse issues with no history of drug or alcohol treatments inpatient or outpatient. Medical history: GERD, migraine headaches, BPH, chronic back pain, degenerative disc disease, Surgeries: He had reported 3 previous back surgeries that he had had over 20 years ago. He reported spinal fusion surgery. He also reported a left knee surgery. Allergies: No known drug allergies Medications: Cymbalta 30 mg daily, Flexeril 10 mg 3 times a day, Celebrex 400 mg daily, hydrocodone 1 tablet 3 times a day as needed, ibuprofen 800 mg 3 times a day Legal history: None history: None Family psychiatric history: None reported Social history: Patient had reported a history of educational delays as he had required special education services. He was born in [facility] and raised by his biological parents. He has 4 more siblings. He had reported no history of trauma during his childhood or adulthood. He had reported that he did not receive his GED and dropped out of school in the 11th grade. 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 He reports that he has been on disability after multiple back surgeries and is unable to work for physical reasons. He states that he has been to his and his first marriage of 33 years and has 2 adult children ages 20 and 27 who live nearby. 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 He reports that he is unemployed as well as his being unemployed. Meds Home Medications and Allergies Home Medications Medication Instructions Recorded Confirmed Last Taken Type hydrocodone 10 mg-acetaminophen 1 tab PO TID PRN Pain 01/02/20 09/05/23 01/03/20 History 325 mg tablet celecoxib 400 mg capsule 400 mg PO DAILY 09/05/23 09/05/23 Unknown History cyclobenzaprine 10 mg tablet 10 mg PO TID PRN Muscle Spasm 09/05/23 09/05/23 Unknown History duloxetine 20 mg capsule,delayed 20 mg PO DAILY 09/05/23 09/05/23 Unknown History release duloxetine 30 mg capsule,delayed 30 mg PO DAILY 09/05/23 09/05/23 Unknown History release ibuprofen 200 mg tablet 800 mg PO TID PRN Pain 09/05/23 09/05/23 Unknown History Allergies Allergy/AdvReac Type Severity Reaction Status Date / Time No Known Allergies Allergy Verified 01/02/20 11:47 Current Medications Current Medications Generic Name Dose Route Start Last Admin Trade Name Raymond PRN Reason Stop Dose Admin Acetaminophen 650 mg 09/05/23 00:10 09/05/23 06:08 Acetaminophen 325 Mg Tablet PO 650 mg Q6H PRN Administration Mild/Mod Pain Or Temp >/= 101 Sodium Chloride 1,000 mls @ 75 mls/hr 09/05/23 12:15 09/05/23 13:54 Sodium Chloride 0.9% IV 75 mls/hr .[id number] MAYUR Administration Ondansetron HCl 4 mg 09/05/23 00:10 09/05/23 04:37 Ondansetron 2 Mg/Ml Sdv 2 Ml IVP 4 mg Q8H PRN Administration vomiting, or N/V if npo Pantoprazole Sodium 40 mg 09/05/23 09:00 09/05/23 08:16 Pantoprazole 40 Mg Sdv IVP 40 mg DAILY MAYUR Administration Tamsulosin HCl 0.4 mg 09/05/23 06:30 09/05/23 06:50 Tamsulosin 0.4 Mg Capsule PO 0.4 mg DAILY MAYUR Administration PFSH NPU 2 PFSH: Medical History BPH (benign prostatic hyperplasia) Panic attack Anxiety Depression Arthritis Fibromyalgia GERD (gastroesophageal reflux disease) Hemorrhoid Hypertension Hypercholesteremia Irritable bowel syndrome Migraine headache Prostate enlargement Chronic low back pain PUD (peptic ulcer disease) Gastritis Normal colonoscopy Surgical History History of back surgery H/O knee surgery Hx of detached retina repair Hx of esophagogastroduodenoscopy Family History Other CAD (coronary artery disease) Cancer Depression Hypertension Social History Smoking and tobacco/nicotine status: former use of tobacco/nicotine Marital status: Mental Status Exam 2 MSE Comments: Patient is a tall healthy white male who appeared his stated age with adequate hygiene. He was alert and oriented to person place time and situation. Speech was normal in rate rhythm and prosody. His mood was endorsed as depressed. His affect was tearful and mood congruent. His thought process was linear logical and goal-directed. His thought content showed evidence of suicidal ideation with a plan overdose. He denied any homicidal ideation. There was no clear evidence of delusional thinking. He did not appear to be responding to internal stimuli. His recent and remote memory appeared grossly intact. His insight was poor. His judgment was impaired. His impulse control appeared limited. Vitals/I&O/Wt Last Vital Signs Temp 98.8 F 09/05/23 08:00 Pulse 100 09/05/23 18:30 Resp 22 H 09/05/23 18:30 BP 159/98 09/05/23 18:30 Pulse Ox 92 09/05/23 18:30 O2 Del Method Room Air 09/05/23 06:00 09/05/23 09/05/23 09/05/23 06:59 14:59 22:59 Intake Total 180 / 180 200 / 200 500 / 700 Output Total 125 / 125 700 / 700 2900 / 3600 Balance 55 / 55 -500 / -500 -2400 / -2900 Weight last 48 hrs Weight 103 kg Weight 103 kg Weight 102.058 kg Physical Exam 2 Urinary Catheter Management: Caban: Cath Placed During This Visit: yes Reason for Continuing Indwelling Catheter: Accurate Measurement of Urinary Output in Critically Ill Patients Urinary Catheter Date of Insertion: 09/05/23 Urinary Catheter Time of Insertion: 15:11 Data NPU 09/05/23 03:27 09/05/23 03:27 A&P Assessment and plan (1) Suicidal overdose: (2) MDD (major depressive disorder), recurrent severe, without psychosis: (3) MACIEL (generalized anxiety disorder): (4) Panic attacks: (5) Pain disorder associated with psychological and physical factors: Plan 52-year-old male with a history of generalized anxiety disorder, panic attacks, and an extended history of major depression admitted after suicide attempt via overdose currently in the ICU. When the patient is stabilized he will require acute inpatient hospitalization and will remain on a 96-hour hold. 1. Encourage individual, group and milieu therapy. ?2.Recommend sober living treatment at the highest level of care to which the patient is willing to commit. 3.Continue q-15 minute checks for safety once stabilized in ICU and admitted to NPU. 4. Will attempt to gather collateral information. Attestations NPU 2 Medical Necessity Statement*: Inpatient hospitalization is medically necessary and deemed to ?be ?the clinically appropriate intervention ?at this time.? We will monitor/initiate medications and make changes as indicated.? The patient will be in the hospital on the NPU for over 2 midnights.? The patient?s likely length of stay 5-7 days. Coding Level of Care Code Acute Code for Chg Fwd Diagnoses Suicidal overdose T50.902A MDD (major depressive disorder), recurrent severe, without psychosis F33.2 MACIEL (generalized anxiety disorder) F41.1 Panic attacks F41.0 Pain disorder associated with psychological and physical factors F45.42
--- NOTE | 2023-09-05 23:48 | PC.NURSE ---
Patient transferred to med surg unit, all belongings with patient, receiving nurse present upon arrival.
[2023-09-06] VITALS (8 sets, daily range): BP systolic 118–168; BP diastolic 80–100; PULSE 76–118; RESP 16–20; TEMP 36.2–37.3; O2SAT 92–96
[2023-09-06] MEDS: carvedilol 3.125 mg Tablet PO ×3 (00:21→20:15)
[2023-09-06] MEDS: sodium chloride 0.9% 1,000 ML 75 ML IV (00:22)
[2023-09-06 06:11] LABS: Basophils % 0.3 %; Eosinophils # 0.2 10^3/uL (0.0-0.8); Eosinophils % 1.4 %; Hematocrit 41.9 % (37-53); Lymphocytes % 16.4 %; Mean Corpuscular HGB Conc 33.7 g/dL (30-55); Mean Corpuscular Hemoglobin 29.9 pg (27-33); Mean Corpuscular Volume 88.8 fl (82-101); Mean Platelet Volume 10.5 fL (7.4-10.4); Monocytes % 8.3 %; Neutrophils # 8.97 10^3/uL (1.8-7.7); Neutrophils % 73.3 %; Nucleated Red Blood Cells % 0 %; Platelet Count 235 10^3/cmm (157-399); Red Blood Count 4.72 10^6/uL (3.85-5.65); Red Cell Distribution Width 12.6 % (12.1-15.1); White Blood Count 12.24 10^3/uL (3.29-11.43)
[2023-09-06 06:36] LABS: Alanine Aminotransferase 21 U/L (0-41); Albumin Level 3.9 g/dL (3.5-5.2); Alkaline Phosphatase 61 U/L (40-130); Anion Gap 11.1 (5-19); Aspartate Amino Transferase 18 U/L (0-40); Blood Urea Nitrogen 11 mg/dL (6-20); Calcium 8.4 mg/dL (8.5-10.5); Carbon Dioxide 26 mmol/L (22-29); Chloride 103 mmol/L (98-107); Creatinine Clr Calc Pharmacy 149.5979; Globulin 2.3 g/dL (1.3-4.6); Glomerular Filtration Rate 118.4 mL/min (90-130); Glucose 119 mg/dL (65-115); Osmolality Calculated 283 mOsm/kg (285-295); Potassium 4.1 mmol/L (3.5-5.1); Sodium 136 mmol/L (136-145); Total Bilirubin 0.5 mg/dL (0.15-1.2); Total Protein 6.2 g/dL (6.6-8.7)
[2023-09-06 06:44] LABS: Magnesium 2.1 mg/dL (1.7-2.3); NT Pro B Type Natriuretic Pept 135 pg/mL (0-125); Phosphorus 2.8 mg/dL (2.5-4.5)
[2023-09-06] MEDS: tamsulosin 0.4 mg Capsule 0.400000000000000022 MG PO (08:20)
[2023-09-06] MEDS: pantoprazole 40 mg SDV IVP (08:21)
[2023-09-06] MEDS: amlodipine 10 mg Tablet PO (09:06)
--- NOTE | 2023-09-06 09:11 | PC.NURSE ---
Patient states he does not currently have any suicidal ideations or plan this morning. Alert and oriented x4. 1:1 sitter at bedside.
--- NOTE | 2023-09-06 11:28 | PC.CHAP ---
Pastoral Care Encounter/Spiritual Assessment Type of Contact [] Declined air traffic control operator visit [] Patient/Family/Request visit [] Outpatient visit [] Follow-up visit [] Physician referral [] Code/Alert [x] Routine visit [] Staff referral [] Actively dying [] Patient sleeping [] Family support [] [] Out of room [] Palliative care [] [] Receiving care in room [] Pre-surgical visit [] Trauma [] Long length of stay [] ICU visit [] Other: Relational/Emotional Strength [] Patient feels connected with others/family/visitors/staff [] Distress [] Loneliness/isolation [] Abandonment Spirituality of Patient [x] Person of Lisa [] Attends Advent of their Lisa [x] Believes in Prayer [] Reads Bible or Anglican materials [] There are Spiritual issues to be addressed Shipping Processor Interventions [x] Prayer [x] Active listening [] Non-anxious presence [] Spiritual/emotional support [] Crisis/trauma care [] Spiritual counseling [] Bereavement support [] Provided bereavement packet [] Provided Bible/devotional materials [] Provided toy/stuffed animal, coloring book to patient or family member [] Provided Communion [] Anointing/[place] [] Salvation [x] Completed spiritual assessment [] Other: Impact on Illness or Injury [] Angry [] Fearful [] Anxious [] Often cries [] Exhaustion [] Unable to work [] Unable to attend yazidism [] Unable to walk/stand [] Unable to read [] Unable to drive [] Unable to eat/drink [] Unable to sleep [] Unable to be with family [] Patient intubated [] Other: Summary Time spent with patient 5 min
--- NOTE | 2023-09-06 11:46 | P.PN_ITS ---
Subjective 2 Subjective: Patient was seen this morning, denies any fevers, no chills, no cough, denies any active suicidal or homicidal ideation, I apologized to patient as I thought he had a history of CAD however he denies a history of CAD denies a history of cardiac stenting or history of CHF he denies ever having a stress test, however he has had a stress test in 2017 but he seems to not remember this, nonetheless he denies any chest pain, we discussed plan to move to neuropsychiatric unit, in terms of his chronic pain medications, he tells me that his primary care provider has been providing him the hydrocodone but he retired and he has some supply left, I advised him that given his attempted kill himself by taking hydrocodone I will not be prescribing him any hydrocodone Vitals/I&O/Wt Last Vital Signs Temp 97.4 F L 09/06/23 09:02 Pulse 87 09/06/23 09:02 Resp 18 09/06/23 09:02 BP 162/88 09/06/23 09:02 Pulse Ox 96 09/06/23 09:02 O2 Del Method Room Air 09/06/23 09:02 09/05/23 09/06/23 09/06/23 22:59 06:59 14:59 Intake Total 1250 / 1450 2265 / 3715 240 / 240 Output Total 3550 / 4250 1200 / 5450 Balance -2300 / -2800 1065 / -1735 240 / 240 Weight last 48 hrs Weight 94.347 kg Weight 94.347 kg Weight 103 kg Weight 103 kg Weight 102.058 kg Physical Exam 2 Const: COMMON NORMALS: no acute distress and patient oriented x3 Resp: COMMON NORMALS: normal respiratory effort, No retractions, No use of accessory muscles and clear to auscultation bilaterally AUSCULTATION: clear to auscultation bilaterally Cardio: COMMON NORMALS: regular rate, regular rhythm, S1 normal heart sound present and S2 normal heart sound present RATE: regular rate RHYTHM: r egular rhythm HEART SOUNDS: S1 normal heart sound present and S2 normal heart sound present GI: COMMON NORMALS: Normal to inspection, nondistended, normoactive bowel sounds present and non-tender Extremity: COMMON NORMALS: no pedal edema Neuro: COMMON NORMALS: patient oriented x3 Psych: COMMON NORMALS: mental status grossly normal Urinary Catheter Management: Caban: Cath Placed During This Visit: yes, but has since been removed by the nurse Reason for Continuing Indwelling Catheter: Decision to DC Catheter Urinary Catheter Date of Insertion: 09/05/23 Urinary Catheter Time of Insertion: 15:11 Date Urinary Catheter Removed: 09/06/23 Time Urinary Catheter Discontinued: 09:11 Data 09/06/23 05:37 09/06/23 05:37 A&P Assessment and plan (1) AMS (altered mental status): (2) Medication overdose: As above (3) Leukocytosis: As above (4) Suicide attempt: Plan Acute encephalopathy, likely secondary to intentional drug overdose, combination of meloxicam, hydrocodone, duloxetine, cyclobenzaprine -Resolved -Continue to monitor mentation closely -Monitor respiratory status closely Suicide attempt -Psychiatry consulted, will moved to the neuropsychiatric unit -96-hour hold -Suicide precautions Anxiety Panic attacks HTN: Monitor blood pressure. Resume lisinopril when he is more awake HLD: Resume statin when he is more awake BPH GERD: IV PPI for now Plan for today can add Norvasc for blood pressure control continue to monitor closely moved to neuropsychiatric unit Attestations 2 Medical Necessity Statement*: Patient requires hospitalization for suicide attempt Diagnoses AMS (altered mental status) R41.82 Medication overdose T50.901A Leukocytosis D72.829 Suicide attempt T14.91XA
--- NOTE | 2023-09-06 11:52 | PC.NURSE ---
Report given to Lee Ann Mathis RN. Patient stable to transfer. This nurse transported patient to NPU, accompanied by security.
--- NOTE | 2023-09-06 12:25 | PC.SOCIAL ---
IMM Update pg 2 of IMM updated and reviewed w/ patient. Copy provided and copy dated, initialed and placed in chart.
--- NOTE | 2023-09-06 13:46 | PC.NURSE ---
NPU admission note Pt arrived to unit via wheelchair from [facility] at 1147. Pt stated that he is here because he has been depressed for a couple months now and on Wednesday all of his family was out of the house so he decided to take a handful of all of his medications. He states that in the past he has thought about suicide because of his chronic back pain. Pt seems very confused during admission. He did not remember how old he is and he forgot that he had a . During admission pt denies SI/HI and AVH. Since admission pt has ate lunch, and talked to the Speech pathologist. He is now down in his room laying in bed, no distress noted at this time.
--- NOTE | 2023-09-06 16:14 | P.NPUPN_ITS ---
Subjective NPU 2 Subjective: 52-year-old male admitted after an overd ose on multiple medications initially transferred here this morning after a stay at the ICU. The patient had reported significant pain issues and continue to report feeling depressed while eliciting suicidal ideation and an inability to manage chronic pain that he had described as being unbearable. He reported continued suicidal thoughts. He continued to endorse feelings of hopelessness. He had attended groups today. Mental Status Exam 2 MSE Comments: Patient is a tall healthy white male who appeared his stated age with adequate hygiene. He was alert and oriented to person place time and situation. Speech was normal in rate rhythm and prosody. His mood was depressed. His affect was restricted in range and mood congruent. His thought process was linear logical and goal-directed. His thought content showed evidence of suicidal ideation with a plan overdose. He denied any homicidal ideation. There was no clear evidence of delusional thinking. He did not appear to be responding to internal stimuli. His recent and remote memory appeared grossly intact. His insight was poor. His judgment was impaired. His impulse control appeared limited. Vitals/I&O/Wt Last Vital Signs Temp 99.1 F 09/06/23 14:00 Pulse 112 H 09/06/23 14:00 Resp 18 09/06/23 14:00 BP 118/80 09/06/23 14:00 Pulse Ox 94 09/06/23 14:00 O2 Del Method Room Air 09/06/23 12:02 09/06/23 09/06/23 09/06/23 06:59 14:59 22:59 Intake Total 2265 / 3715 240 / 240 Output Total 1200 / 5450 Balance 1065 / -1735 240 / 240 Weight last 48 hrs Weight 94.347 kg Weight 94.347 kg Weight 103 kg Weight 103 kg Weight 102.058 kg Physical Exam 2 Urinary Catheter Management: Caban: Cath Placed During This Visit: yes, but has since been removed by the nurse Reason for Continuing Indwelling Catheter: Decision to DC Catheter Urinary Catheter Date of Insertion: 09/05/23 Urinary Catheter Time of Insertion: 15:11 Date Urinary Catheter Removed: 09/06/23 Time Urinary Catheter Discontinued: 09:11 Data NPU 09/06/23 05:37 09/06/23 05:37 A&P Assessment and plan (1) Suicidal overdose: (2) MDD (major depressive disorder), recurrent severe, without psychosis: (3) MACIEL (generalized anxiety disorder): (4) Panic attacks: (5) Pain disorder associated with psychological and physical factors: Plan 52-year-old male with a history of generalized anxiety disorder, panic attacks, and an extended history of major depression admitted after suicide attempt via overdose currently in the ICU. When the patient is stabilized he will require acute inpatient hospitalization and will remain on a 96-hour hold. 1. Encourage individual, group and milieu therapy. ?2.Recommend sober living treatment at the highest level of care to which the patient is willing to commit. 3.Continue q-15 minute checks for safety and will consider restarting cymbalta vs switching to different antidepressant. 4. Will attempt to gather collateral information. Involuntary Hold Information 2 96 Hour Hold: 96 Hour Involuntary Admission: Yes 96 Hour Hold Ending Date: 09/10/23 96 Hour Hold Ending Time: 00:01 Attestations NPU 2 Medical Necessity Statement*: Inpatient hospitalization is medically necessary and deemed to ?be ?the clinically appropriate intervention ?at this time.? We will monitor/initiate medications and make changes as indicated.? The patient?s likely length of stay 5-7 days. Coding Level of Care Code Acute Code for [facility] Fwd Diagnoses Suicidal overdose T50.902A MDD (major depressive disorder), recurrent severe, without psychosis F33.2 MACIEL (generalized anxiety disorder) F41.1 Panic attacks F41.0 Pain disorder associated with psychological and physical factors F45.42
[2023-09-06] MEDS: hyDROXYzine 25 mg Capsule 50 MG PO (20:09)
[2023-09-06] MEDS: trazodone 50 mg Tablet PO (20:09)
[2023-09-06] MEDS: docusate sodium 100 mg Capsule PO (21:10)
[2023-09-07 06:00] VITALS: BP 177/77; PULSE 90; RESP 16; TEMP 37; O2SAT 93
[2023-09-07] MEDS: tamsulosin 0.4 mg Capsule 0.400000000000000022 MG PO (08:24)
[2023-09-07] MEDS: carvedilol 3.125 mg Tablet PO ×2 (08:24→19:56)
[2023-09-07] MEDS: amlodipine 10 mg Tablet PO (08:24)
--- NOTE | 2023-09-07 13:27 | W.PM.NPUPNS ---
Subjective NPU Subjective: 52-year-old male admitted after an overdose on multiple medications initially transferred here this morning after a stay at the ICU. The patient had continued to endorse severe depression. He had reported feeling hopeless. He had described having intractable pain but stated that shortly after receiving his opiate medications 3 times a day it had provided a 3 to 4-hour window where he could function better. Patient was agreeable to trying another medication and had endorsed several years of trials on multiple antidepressants. He had reported having significant difficulties with his memory and reported difficulties with concentration. He reported having problems with chronic worry. He had reported having felt jittery. The patient had attended groups. He was unable to recall what the focus was on groups today. He had reported diminished appetite, low energy and continued periods of sadness and tearfulness along with hopelessness. Mental Status Exam MSE Comments: Patient is a healthy white male who appeared his stated age with diminished hygiene. He was alert and oriented to person,place, time,and situation. Speech was normal in rate, rhythm, and prosody. His mood was depressed. His affect was tearfu and mood congruent. His thought process was linear, logical ,and goal-directed. His thought content showed evidence of suicidal ideation with a plan overdose. He denied any homicidal ideation. There was no clear evidence of delusional thinking. He did not appear to be responding to internal stimuli. Immediate recall was 3/3 but 0/3 words recalled at 5 minutes. His insight was poor. His judgment was impaired. His impulse control appeared limited. Vitals/I&O/Wt Last Vital Signs Temp 98.6 F 09/07/23 06:00 Pulse 90 09/07/23 06:00 Resp 16 09/07/23 06:00 BP 177/77 09/07/23 06:00 Pulse Ox 93 09/07/23 06:00 O2 Del Method Room Air 09/07/23 06:00 Weight last 48 hrs Weight 94.347 kg Weight 94.347 kg Physical Exam Urinary Catheter Management: Caban: Cath Placed During This Visit: yes, but has since been removed by the nurse Reason for Continuing Indwelling Catheter: Decision to DC Catheter Urinary Catheter Date of Insertion: 09/05/23 Urinary Catheter Time of Insertion: 15:11 Date Urinary Catheter Removed: 09/06/23 Time Urinary Catheter Discontinued: 09:11 Data NPU 09/06/23 05:37 09/06/23 05:37 A&P Assessment and plan (1) Suicidal overdose: (2) MDD (major depressive disorder), recurrent severe, without psychosis: (3) MACIEL (generalized anxiety disorder): (4) Panic attacks: (5) Pain disorder associated with psychological and physical factors: Plan 52-year-old male with a history of generalized anxiety disorder, panic attacks, and an extended history of major depression admitted after suicide attempt via overdose currently in the ICU. When the patient is stabilized he will require acute inpatient hospitalization and will remain on a 96-hour hold. 1. Encourage individual, group and milieu therapy. ?2.Recommend sober living treatment at the highest level of care to which the patient is willing to commit. 3.Continue q-15 minute checks for safety 4. Will attempt to gather collateral information. 5. Restart cymbalta 30mg daily today. Involuntary Hold Information 96 Hour Hold: 96 Hour Involuntary Admission: Yes 96 Hour Hold Ending Date: 09/10/23 96 Hour Hold Ending Time: 00:01 Attestations NPU Medical Necessity Statement*: Inpatient hospitalization is medically necessary and deemed to ?be ?the clinically appropriate intervention ?at this time.? We will monitor/initiate medications and make changes as indicated.? The patient?s likely length of stay 5-7 days. Coding Level of Care Code Acute Code for [facility] Fwd Diagnoses Suicidal overdose T50.902A MDD (major depressive disorder), recurrent severe, without psychosis F33.2 MACIEL (generalized anxiety disorder) F41.1 Panic attacks F41.0 Pain disorder associated with psychological and physical factors F45.42
[2023-09-07 13:58] VITALS: BP 145/81; PULSE 89; RESP 16; TEMP 36.6; O2SAT 100
[2023-09-07] MEDS: duloxetine 30 mg Capsule PO (14:45)
[2023-09-07] MEDS: docusate sodium 100 mg Capsule PO (17:59)
[2023-09-07] MEDS: hyDROXYzine 25 mg Capsule 50 MG PO (19:56)
[2023-09-07] MEDS: trazodone 50 mg Tablet PO (19:56)
[2023-09-07 19:57] VITALS: BP 165/90; PULSE 95; RESP 18; TEMP 36.8; O2SAT 96
[2023-09-08 06:00] VITALS: BP 119/75; PULSE 99; RESP 16; TEMP 36.8; O2SAT 96
[2023-09-08] MEDS: tamsulosin 0.4 mg Capsule 0.400000000000000022 MG PO (08:45)
[2023-09-08] MEDS: amlodipine 10 mg Tablet PO (08:45)
[2023-09-08] MEDS: carvedilol 3.125 mg Tablet PO ×2 (08:45→20:04)
[2023-09-08] MEDS: duloxetine 30 mg Capsule PO (08:45)
[2023-09-08 13:03] VITALS: BP 134/87; PULSE 97; RESP 16; TEMP 36.6; O2SAT 97
--- NOTE | 2023-09-08 14:55 | P.NPUPN_ITS ---
Subjective NPU 2 Subjective: 52-year-old male admitted after an overd ose on multiple medications initially transferred here this morning after a stay at the ICU. Patient continued endorse depression. He had reported that he was feeling a little bit better. He had reported improved sleep. Patient had reported considerable problems with his memory. He had endorsed having a history of learning problems and that he had problems with remembering things throughout his life. He had reported that he had waited for his to go out for the day to choose the time to overdose on his medications as he had written in a suicide note addressed to her. He had reported difficulties with low energy and stated some sense of loss over not being able to complete normal routine daily activities secondary to the emergence of pain particularly back pain radiating to his leg. Mental Status Exam 2 MSE Comments: Patient is a healthy white male who appeared his stated age with diminished hygiene. He continued to show severe psychomotor retardation with antalgic gait. He was alert and oriented to person,place, time,and situation. Speech was normal in rate, rhythm, and prosody. His mood was depressed. His affect was flat and mood congruent. His thought process was linear, logical ,and goal-directed. He denied suicidal ideation. He denied any homicidal ideation. There was no clear evidence of delusional thinking. He did not appear to be responding to internal stimuli. Immediate recall was 3/3 but 0/3 words recalled at 5 minutes. His insight was poor. His judgment was impaired. His impulse control appeared limited. Vitals/I&O/Wt Last Vital Signs Temp 97.9 F 09/08/23 13:03 Pulse 97 09/08/23 13:03 Resp 16 09/08/23 13:03 BP 134/87 09/08/23 13:03 Pulse Ox 97 09/08/23 13:03 O2 Del Method Room Air 09/08/23 13:03 Physical Exam 2 Urinary Catheter Management: Caban: Cath Placed During This Visit: yes, but has since been removed by the nurse Reason for Continuing Indwelling Catheter: Decision to DC Catheter Urinary Catheter Date of Insertion: 09/05/23 Urinary Catheter Time of Insertion: 15:11 Date Urinary Catheter Removed: 09/06/23 Time Urinary Catheter Discontinued: 09:11 Data NPU 09/06/23 05:37 09/06/23 05:37 A&P Assessment and plan (1) Suicidal overdose: (2) MDD (major depressive disorder), recurrent severe, without psychosis: (3) MACIEL (generalized anxiety disorder): (4) Panic attacks: (5) Pain disorder associated with psychological and physical factors: Plan 52-year-old male with a history of generalized anxiety disorder, panic attacks, and an extended history of major depression admitted after suicide attempt via overdose currently in the ICU. When the patient is stabilized he will require acute inpatient hospitalization and will remain on a 96-hour hold. 1. Encourage individual, group and milieu therapy. ?2.Recommend sober living treatment at the highest level of care to which the patient is willing to commit. 3.Continue q-15 minute checks for safety 4. Will attempt to gather collateral information. 5. Increase cymbalta 60mg daily. Involuntary Hold Information 2 96 Hour Hold: 96 Hour Involuntary Admission: Yes 96 Hour Hold Ending Date: 09/10/23 96 Hour Hold Ending Time: 00:01 Attestations NPU 2 Medical Necessity Statement*: Inpatient hospitalization is medically necessary and deemed to ?be ?the clinically appropriate intervention ?at this time.? We will monitor/initiate medications and make changes as indicated.? The patient?s likely length of stay 5-7 days. Coding Level of Care Code Acute Code for [facility] Fwd Diagnoses Suicidal overdose T50.902A MDD (major depressive disorder), recurrent severe, without psychosis F33.2 MACIEL (generalized anxiety disorder) F41.1 Panic attacks F41.0 Pain disorder associated with psychological and physical factors F45.42
[2023-09-08] MEDS: hyDROXYzine 25 mg Capsule 50 MG PO (20:04)
[2023-09-08] MEDS: trazodone 50 mg Tablet PO (20:04)
[2023-09-08 20:31] VITALS: BP 166/81; PULSE 98; RESP 18; TEMP 37; O2SAT 96
[2023-09-09 06:00] VITALS: BP 128/81; PULSE 95; RESP 16; O2SAT 95
[2023-09-09] MEDS: amlodipine 10 mg Tablet PO (11:29)
[2023-09-09] MEDS: polyethylene glycol 3350 Pkt 17 gm PO (11:29)
[2023-09-09] MEDS: carvedilol 3.125 mg Tablet PO ×2 (11:29→20:06)
[2023-09-09] MEDS: duloxetine 30 mg Capsule 60 MG PO (11:30)
[2023-09-09] MEDS: tamsulosin 0.4 mg Capsule 0.400000000000000022 MG PO (11:30)
[2023-09-09 14:00] VITALS: BP 124/80; PULSE 92; RESP 13; TEMP 36.8; O2SAT 94
--- NOTE | 2023-09-09 15:59 | P.NPUPN_ITS ---
Subjective NPU 2 Subjective: 52-year-old male admitted after an overd ose on multiple medications initially transferred here this morning after a stay at the ICU. The patient had reported that he missed his and was feeling better. He had reported that he continued to feel depressed but was motivated and encouraged by his current medication. He reported that his pain was present but was not overwhelming at this time. Patient had reported adequate sleep. He had continued to isolate himself but was able to attend groups without difficulty. He had continued to report having problems with his memory. Mental Status Exam 2 MSE Comments: Patient is a healthy white male who appeared his stated age with diminished hygiene. He continued to show mild psychomotor retardation with antalgic gait. He was alert and oriented to person,place, time,and situation. Speech was normal in rate, rhythm, and prosody. His mood was endorsed as better. His affect remained restricted in range and mood congruent. His thought process was linear, logical ,and goal-directed. He denied suicidal ideation. He denied any homicidal ideation. There was no clear evidence of delusional thinking. He did not appear to be responding to internal stimuli. His insight was improving. His judgment was impaired. His impulse control appeared better. Vitals/I&O/Wt Last Vital Signs Temp 98.6 F 09/08/23 20:31 Pulse 95 09/09/23 06:00 Resp 16 09/09/23 06:00 BP 128/81 09/09/23 06:00 Pulse Ox 95 09/09/23 06:00 O2 Del Method Room Air 09/09/23 06:00 Physical Exam 2 Urinary Catheter Management: Caban: Cath Placed During This Visit: yes, but has since been removed by the nurse Reason for Continuing Indwelling Catheter: Decision to DC Catheter Urinary Catheter Date of Insertion: 09/05/23 Urinary Catheter Time of Insertion: 15:11 Date Urinary Catheter Removed: 09/06/23 Time Urinary Catheter Discontinued: 09:11 Data NPU 09/06/23 05:37 09/06/23 05:37 A&P Assessment and plan (1) MDD (major depressive disorder), recurrent severe, without psychosis: (2) Suicidal overdose: (3) MACIEL (generalized anxiety disorder): (4) Panic attacks: (5) Pain disorder associated with psychological and physical factors: Plan 52-year-old male with a history of generalized anxiety disorder, panic attacks, and an extended history of major depression admitted after suicide attempt via overdose currently in the ICU. When the patient is stabilized he will require acute inpatient hospitalization and will remain on a 96-hour hold. 1. Encourage individual, group and milieu therapy. ?2.Recommend sober living treatment at the highest level of care to which the patient is willing to commit. 3. Continue q-15 minute checks for safety 4. Will attempt to gather collateral information. 5. Continue cymbalta 60mg daily. 6. Patient improving. Likely d/c tommorow. Involuntary Hold Information 2 96 Hour Hold: 96 Hour Involuntary Admission: Yes 96 Hour Hold Ending Date: 09/10/23 96 Hour Hold Ending Time: 00:01 Attestations NPU 2 Medical Necessity Statement*: Inpatient hospitalization is medically necessary and deemed to ?be ?the clinically appropriate intervention ?at this time.? We will monitor/initiate medications and make changes as indicated.? The patient?s likely length of stay 1-2 days. Coding Level of Care Code Acute Code for [facility] Fwd Diagnoses MDD (major depressive disorder), recurrent severe, without psychosis F33.2 Suicidal overdose T50.902A MACIEL (generalized anxiety disorder) F41.1 Panic attacks F41.0 Pain disorder associated with psychological and physical factors F45.42
[2023-09-09] MEDS: trazodone 50 mg Tablet PO (20:06)
[2023-09-09] MEDS: hyDROXYzine 25 mg Capsule 50 MG PO (20:07)
[2023-09-09 20:43] VITALS: BP 135/87; PULSE 98; RESP 20; O2SAT 96
[2023-09-10] MEDS: trazodone 50 mg Tablet PO (00:49)
[2023-09-10 06:00] VITALS: BP 143/91; PULSE 82; RESP 16; TEMP 36.3; O2SAT 96
[2023-09-10] MEDS: amlodipine 10 mg Tablet PO (09:05)
[2023-09-10] MEDS: polyethylene glycol 3350 Pkt 17 gm PO (09:05)
[2023-09-10] MEDS: duloxetine 30 mg Capsule 60 MG PO (09:05)
[2023-09-10] MEDS: tamsulosin 0.4 mg Capsule 0.400000000000000022 MG PO (09:05)
[2023-09-10] MEDS: carvedilol 3.125 mg Tablet PO (09:05)
--- NOTE | 2023-09-10 10:19 | P.NPUDS_ITS ---
Diagnoses at Discharge Discharge Diagnosis (1) MDD (major depressive disorder), recurrent severe, without psychosis: Status: Acute (2) Suicidal overdose: Status: Acute (3) MACIEL (generalized anxiety disorder): Status: Acute (4) Panic attacks: Status: Acute (5) Pain disorder associated with psychological and physical factors: Status: Acute Reason for Visit Reason for Visit: od Brief History: History of Present Illness Whit Garcia is a 52 year old male who was brought into for an evaluation to the emergency department after he was found somnolent and sedated at home by his . The patient had admitted to having overdosed on several medications and was admitted to the ICU for further evaluation and stabilization. The patient was evaluated in the ICU. He had endorsed that he had planned on killing himself by overdosing and had allegedly written a note. The patient reports that he has been depressed for many years dating back to the time when he initially had an accident resulting in his current level of disability in his back. He reports that over the past few weeks he has continued to struggle with severe depression with frequent suicidal thoughts, frequent awakenings at night, increased problems with concentration, frequent worry, increased feelings of hopelessness, increased feelings of guilt, increased tearfulness and crying episodes along with depressed mood. The patien t had endorsed having chronic problems with managing his anxiety. He describes having problems with excessive worry. He also reports having symptoms supportive of social phobia as a diagnosis with difficulties with being watched and feeling as if he was the center of attention in social situations. He reports the recent emergence of uncued panic attacks with associated chest pain, shortness of breath, difficulties with breathing, and abdominal discomfort as well. The patient has reported that he has been struggling to manage chronic pain and states that he has been less active and less interested in previously enjoyable activities. He states that he rarely uses opiates for managing pain but states that the pain has become unbearable. The patient had reported having previous suicidal thoughts but reports no previous history of suicide attempts. He denies any symptoms suggestive of minda. He endorsed no history of psychosis. He does report that he has been drinking alcohol more frequently but reports no history of increased tolerance nor does he endorse a history of alcohol-related withdrawal symptoms. The patient reports increased social isolation. Inpatient psychiatric history: None Outpatient psychiatric history: He does not report any specific history of outpatient psychotherapy. He reports having previously been treated for depression and anxiety by his primary care physician but was unable to provide details regarding his previous medication trials other than reporting that he had had significant side effects from several of them in the past. He had reported that he had only recently been started on the duloxetine less than 2 weeks ago. Drug and alcohol history: He had reported use of marijuana chronically to manage chronic pain. He had reported no history of stimulant use or any history of opiate abuse. He had reported some routine use of alcohol but denied any history of substance abuse issues with no history of drug or alcohol treatments inpatient or outpatient. Medical history: GERD, migraine headaches, BPH, chronic back pain, degenerative disc disease, Surgeries: He had reported 3 previous back surgeries that he had had over 20 years ago. He reported spinal fusion surgery. He also reported a left knee surgery. Allergies: No known drug allergies Medications: Cymbalta 30 mg daily, Flexeril 10 mg 3 times a day, Celebrex 400 mg daily, hydrocodone 1 tablet 3 times a day as needed, ibuprofen 800 mg 3 times a day Legal history: None history: None Family psychiatric history: None reported Social history: Patient had reported a history of educational delays as he had required special education services. He was born in [facility] and raised by his biological parents. He has 4 more siblings. He had reported no history of trauma during his childhood or adulthood. He had reported that he did not receive his GED and dropped out of school in the 11th grade. 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 He reports that he has been on disability after multiple back surgeries and is unable to work for physical reasons. He states that he has been to his and his first marriage of 33 years and has 2 adult children ages 20 and 27 who live nearby. 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 He reports that he is unemployed as well as his being unemployed. Hospital Course Hospital Course During the hospitalization, the patient had routine laboratory studies which were within normal limits except for a few outliers.? Additionally, there was a general medical evaluation which was also within normal limits and revealed no new acute processes.? At the time of discharge, lethality was denied and psychosis was resolving.? Mood and anxiety were well managed.? The patient endorsed a plan to avoid all drugs of abuse and follow up with the aftercare recommendations of the treatment team.? The patient was evaluated and deemed to be absent credible lethality and had achieved the maximum benefit from an inpatient hospitalization, and so was discharged. ? Patient was admitted initially to the ICU after an overdose on multiple medications. He was stabilized and cleared and he had admitted to having written a suicide note. He had reported his pain issues as a primary focus that had been contributing to his depression along with his loss of previously enjoyable physical activities that were impeded by his chronic pain. He appeared to improve with the initiation of duloxetine and titration up to 60 mg daily. Patient reported no side effects from this increase. Patient was informed that it would be probably necessary for the patient to follow-up with the pain specialist as there were many options for managing his chronic back pain that may allow him an overall improvement in life with the reduction in overall pain for most of the days that may allow him to further engage in physical activities that were previously enjoyable. He expressed motivation to return home and continue to take this medication with follow-up with psychotherapist and a psychiatrist for treatment of depression. Involuntary Hold Information 96 Hour Hold: 96 Hour Involuntary Admission: Yes 96 Hour Hold Ending Date: 09/10/23 96 Hour Hold Ending Time: 00:01 Mental Status Exam MSE Comments: Patient is a healthy white male who appeared his stated age with diminished hygiene. There was evidence of mild psychomotor retardation with antalgic gait. He was alert and oriented to person,place, time,and situation. Speech was normal in rate, rhythm, and prosody. His mood was endorsed as better. His affect appeared less restricted on discharge. His thought process was linear, logical ,and goal-directed. He denied suicidal ideation. He denied any homicidal ideation. There was no clear evidence of delusional thinking. He did not appear to be responding to internal stimuli. His insight was improving. His judgment was fair. His impulse control appeared better. Physical Exam Urinary Catheter Management: Caban: Cath Placed During This Visit: yes, but has since been removed by the nurse Reason for Continuing Indwelling Catheter: Decision to DC Catheter Urinary Catheter Date of Insertion: 09/05/23 Urinary Catheter Time of Insertion: 15:11 Date Urinary Catheter Removed: 09/06/23 Time Urinary Catheter Discontinued: 09:11 Discharge Data Studies Completed and Pending: Completed Studies During Hospitalization Category Date Time Status XR chest 1V sandrine ble [id number] Stat Exams 09/04/23 21:18 Completed Radiology Impressions Chest X-Ray 09/04/23 21:18 IMPRESSION: No acute findings. Laboratory Results WBC 12.24 10^3/uL (3. 29-11.43) H 09/06/23 05:37 RBC 4.72 10^6/uL (3.8 5-5.65) 09/06/23 05:37 Hgb 14.10 g/dL (11.27 -16.99) 09/06/23 05:37 Hct 41.9 % (37-53) 09/06/23 05:37 MCV 88.8 fl (82-101) 09/06/23 05:37 MCH 29.9 pg (27-33) 09/06/23 05:37 MCHC 33.7 g/dL (30-55) 09/06/23 05:37 RDW 12.6 % (12.1-15.1 ) 09/06/23 05:37 Plt Count 235 10^3/cmm (157 -399) 09/06/23 05:37 MPV 10.5 fL (7.4-10.4 ) H 09/06/23 05:37 Neut % (Auto) 73.3 % 09/06/23 05:37 Lymph % (Auto) 16.4 % 09/06/23 05:37 Woodford % (Auto) 8.3 % 09/06/23 05:37 Eos % (Auto) 1.4 % 09/06/23 05:37 Baso % (Auto) 0.3 % 09/06/23 05:37 Neut # (Auto) 8.97 10^3/uL (1.8 -7.7) H 09/06/23 05:37 Lymph # (Auto) 2.0 10^3/uL (0.8- 4.8) 09/06/23 05:37 Woodford # (Auto) 1.0 10^3/uL (0.2- 0.9) H 09/06/23 05:37 Eos # (Auto) 0.2 10^3/uL (0.0- 0.8) 09/06/23 05:37 Baso # (Auto) 0.0 10^3/uL (0.0- 0.1) 09/06/23 05:37 Nucleated RBC % (a uto) 0 % 09/06/23 05:37 Nucleated RBCs # 0.0 /100WBC 09/06/23 05:37 Specimen Type Arterial 09/04/23 21:22 Sample Site Brachial, right 09/04/23 21:22 ABG pH 7.37 (7.35-7.45) 09/04/23 21:22 ABG pCO2 46.7 mmHg (35-45) H 09/04/23 21:22 ABG pO2 74.7 mmHg (80.0-1 00.0) L 09/04/23 21:22 ABG HCO3 27.0 mmol/L (22-2 6) H 09/04/23 21:22 ABG Base Excess 1.1 mmol/L (-2.0- 2.0) 09/04/23 21:22 Piyush Test N/a 09/04/23 21:22 Hematocrit 46.9 % (42-52) 09/04/23 21:22 O2 Delivery Device Room air 09/04/23 21:22 Bricklayer Apprentice ID [email or web address] 09/04/23 21:22 Sodium 136 mmol/L (136-1 45) 09/06/23 05:37 Potassium 4.1 mmol/L (3.5-5 .1) 09/06/23 05:37 Chloride 103 mmol/L (98-10 7) 09/06/23 05:37 Carbon Dioxide 26 mmol/L (22-29) 09/06/23 05:37 Anion Gap 11.1 (5-19) 09/06/23 05:37 BUN 11 mg/dL (6-20) 09/06/23 05:37 Creatinine 0.7 mg/dL (0.7-1. 2) 09/06/23 05:37 GFR Calculation 118.4 mL/min (90- 130) 09/06/23 05:37 Glucose 119 mg/dL (65-115 ) H 09/06/23 05:37 POC Glucose 141 mg/dL (70-110 ) H 09/05/23 01:22 Estimat Average Gl ucose 117 09/05/23 14:12 Hemoglobin A1c 5.7 % (4.0-6.0) 09/05/23 14:12 Calculated Osmolal ity 283 mOsm/kg (285- 295) L 09/06/23 05:37 Calcium 8.4 mg/dL (8.5-10 .5) L 09/06/23 05:37 Phosphorus 2.8 mg/dL (2.5-4. 5) 09/06/23 05:37 Magnesium 2.1 mg/dL (1.7-2. 3) 09/06/23 05:37 Total Bilirubin 0.5 mg/dL (0.15-1 .2) 09/06/23 05:37 AST 18 U/L (0-40) 09/06/23 05:37 ALT 21 U/L (0-41) 09/06/23 05:37 Alkaline Phosphata se 61 U/L (40-130) 09/06/23 05:37 Troponin T Baselin e 9 ng/L (0-15) 09/05/23 12:58 Troponin T 120 Min radha 9.42 ng/L (0-15) 09/05/23 14:12 Delta Troponin T 0.42 ABS# (0-10) 09/05/23 14:12 Troponin T Hi Sens 6Hr 6.00 ng/L (0-15) 09/05/23 19:19 Troponin T Hi Sens 6Hr Delta -3.00 ng/L (0-12) L 09/05/23 19:19 NT-Pro-B Natriuret Pep 135 pg/mL (0-125) H 09/06/23 05:37 Total Protein 6.2 g/dL (6.6-8.7 ) L 09/06/23 05:37 Albumin 3.9 g/dL (3.5-5.2 ) 09/06/23 05:37 Globulin 2.3 g/dL (1.3-4.6 ) 09/06/23 05:37 TSH 0.79 uIU/mL (0.27 -4.20) 09/04/23 20:30 Urine Color Yellow (Yellow) 09/04/23 22:25 Urine Appearance Clear (CLEAR) 09/04/23 22:25 Urine pH 5 (5-7) 09/04/23 22:25 Ur Specific Gravit y 1.020 (1.005-1.0 30) 09/04/23 22:25 Urine Protein Neg (Negative) 09/04/23 22:25 Urine Glucose (UA) 2+ (Normal) H 09/04/23 22:25 Urine Ketones Negative (Negati ve) 09/04/23 22:25 Urine Blood Neg (Negative) 09/04/23 22:25 Urine Nitrate Negative (Negati ve) 09/04/23 22:25 Urine Bilirubin Neg (Negative) 09/04/23 22:25 Urine Urobilinogen Norm mg/dL (Negat leticia) 09/04/23 22:25 Ur Leukocyte Dottie ase Negative (Negati ve) 09/04/23 22:25 Salicylates < 0.3 mg/dL (3-10 ) L 09/04/23 20:30 Urine Opiates Scre en Positive ng/mL (N egative) H 09/04/23 22:25 Acetaminophen < 5.0 ug/mL (10-3 0) L 09/04/23 20:30 Ur Barbiturates Sc reen Negative ng/mL (N egative) 09/04/23 22:25 Ur Phencyclidine S crn Negative ng/mL (N egative) 09/04/23 22:25 Ur Amphetamines Sc reen Negative ng/mL (N egative) 09/04/23 22:25 U Benzodiazepines Scrn Negative ng/mL (N egative) 09/04/23 22:25 Urine Cocaine Scre en Negative ng/mL (N egative) 09/04/23 22:25 U Marijuana (THC) Screen Negative ng/mL (N egative) 09/04/23 22:25 Ethyl Alcohol < 10 mg/dL (0-10) 09/04/23 20:30 Vitals: Last Vital Signs Temp 97.4 F L 09/10/23 06:00 Pulse 82 09/10/23 06:00 Resp 16 09/10/23 06:00 BP 143/91 09/10/23 06:00 Pulse Ox 96 09/10/23 06:00 O2 Del Method Room Air 09/10/23 06:00 Discharge Plan Discharge Patient Disposition: Home Condition: Serious Prescriptions: New carvedilol 3.125 mg Tablet 3.125 mg PO 0900,2100 30 Days Qty: 60 1RF duloxetine 60 mg capsule,delayed release(DR/EC) 60 mg PO DAILY 30 Days Qty: 30 1RF tamsulosin 0.4 mg Capsule 0.4 mg PO DAILY 30 Days Qty: 30 1RF trazodone 50 mg Tablet 50 mg PO BEDTIME PRN (Reason: Sleep) 30 Days Qty: 30 1RF Continued hydrocodone-acetaminophen 10-325 mg Tablet 1 tab PO TID PRN (Reason: Pain) celecoxib 400 mg capsule 400 mg PO DAILY cyclobenzaprine 10 mg Tablet 10 mg PO TID PRN (Reason: Muscle Spasm) ibuprofen 200 mg Tablet 800 mg PO TID PRN (Reason: Pain) Discontinued duloxetine 20 mg capsule,delayed release(DR/EC) 20 mg PO DAILY Rx Instructions: for 7 days then start 30mg duloxetine 30 mg capsule,delayed release(DR/EC) 30 mg PO DAILY Rx Instructions: start after the 20mg is complete Discharge Orders: Discharge Order (Routine); Ordered 09/10/23 Ordered By: Sushil Crawley Referrals: [facility] [Outside] - 09/15/23 8:30 am Brian Gupta MD [Primary Care Provider] - Discharge Diet: Usual diet Discharge Activity: Resume usual activity Patient Instructions: Trazodone (By mouth), Tamsulosin (By mouth) (Flomax), Carvedilol (By mouth) (Coreg, Coreg CR, Hypertenevide-12.5), Duloxetine (By mouth) (Radha Quezada Drizalma Sprinkle), Depression (DC), Generalized Anxiety Disorder (ED), Help Prevent Suicide (DC), Suicide Prevention (DC), Opioid Safety Discharge Attestations NPU Time Spent in Discharge Care*: less than 30 min Specific Discharge Activities: Specific discharge activities: educating patient and evaluating patient/reviewing data Coding Level of Care Code Acute Code for [facility] Fwd Diagnoses MDD (major depressive disorder), recurrent severe, without psychosis F33.2 Suicidal overdose T50.902A MACIEL (generalized anxiety disorder) F41.1 Panic attacks F41.0 Pain disorder associated with psychological and physical factors F45.42
[2023-09-10 10:29] VITALS: BP 143/91; PULSE 82; RESP 16; TEMP 36.3; O2SAT 96
--- NOTE | 2023-09-10 11:45 | DCPLANNER ---
IMM completed 09/10/2023 @ 1138. Pt was given a copy of rights and he stated he understood his rights.
== END 2023-09-10 12:24 | disposition home or self-care (01) | DRG 917 ==
LOC: ER 23:34 → ICU 23:54 → MEDSURG 09-06 00:11 → NP 09-06 11:53
PROVIDERS: Admitting Provider Internal Medicine; Emergency Provider Emergency Medicine; PCP Internal Medicine; Visit Provider Family Medicine
DX: T43.212A Poisoning by selective serotonin and norepinephrine reuptake inhibitors, intentional self-harm, initial encounter (principal); G92.8 Other toxic encephalopathy; F33.2 Major depressive disorder, recurrent severe without psychotic features; T39.392A Poisoning by other nonsteroidal anti-inflammatory drugs [NSAID], intentional self-harm, initial encounter; T48.1X2A Poisoning by skeletal muscle relaxants [neuromuscular blocking agents], intentional self-harm, initial encounter; T40.2X2A Poisoning by other opioids, intentional self-harm, initial encounter; N40.1 Benign prostatic hyperplasia with lower urinary tract symptoms; R33.8 Other retention of urine; F41.1 Generalized anxiety disorder; F41.0 Panic disorder [episodic paroxysmal anxiety]; G89.29 Other chronic pain; M54.9 Dorsalgia, unspecified; K21.9 Gastro-esophageal reflux disease without esophagitis; G43.909 Migraine, unspecified, not intractable, without status migrainosus; K58.9 Irritable bowel syndrome, unspecified; D64.9 Anemia, unspecified; M79.7 Fibromyalgia; I10 Essential (primary) hypertension; E78.00 Pure hypercholesterolemia, unspecified; F45.42 Pain disorder with related psychological factors; Z87.11 Personal history of peptic ulcer disease
CPT/HCPCS: 36415; 36416; 36600; 51702; 71045; 80053; 80306; 80307; 81003; 82803; 82962; 83036; 83735; 83880; 84100; 84443; 84484; 85025; 92523; 92610; 93005; 96376; 97150; 97165; 99285; C9113; J2310; J2405; J7030